=== PATIENT | female | born 1980 | race Hispanic/Latino ===

== ENCOUNTER 2016-11-02 15:27 | Emergency (ER) | payer MEDICAID ==
[2016-11-02 16:08] VITALS: BP 149/87
[2016-11-02] MEDS ORDERED: NORCO 5/325 PO ONE (17:04)
[2016-11-02] MEDS ORDERED: CLEOCIN IM ONE (17:05)
--- NOTE | 2016-11-02 17:13 | Emergency Department Report ---
HPI - General Chief Complaint: Skin/Abscess/Foreign Body Time Seen by Provider: 11/02/16 17:03 - HPI HPI: She is a 36-year-old female presents to the ED complaining of redness, pain and buttock area times a week. Patient states she was in about a week ago and thinks she may have gotten bitten by a spider. Patient states she did not feel any bite or see any spiders. Patient states on Wednesday the buttock area begin painful to touch. Patient states she was unable to see due to pain. Patient states walking and sitting out of restraints to pain. Patient states redness and swelling to buttock area. Patient denies fevers/chills/nausea/vomiting/abdominal pain/vaginal discharge bleeding or any other problems ED Past Medical Hx - Past Medical History Previous Medical History?: Yes Hx Asthma: Yes Additional medical history: Vaginal delivery x 5, Mioscarriage x 2 - Surgical History Past Surgical History?: No Hx Cholecystectomy: Yes Additional Surgical History: tubal ligation, tonsilectomy - Social History Smoking Status: Current Every Day Smoker Substance Use Type: Non Opiate Pain, Prescribed, Other - Medications Home Medications: Home Medications Medication Instructions Recorded Confirmed Last Taken Type Azithromycin [Zithromax Z-SKYLA] 250 mg PO DAILY #6 tablet 02/05/14 Unknown Rx Acetaminophen/Codeine [Tylenol 1 tab PO Q6H PRN #14 tab 11/02/16 Unknown Rx /Codeine # 3 tab] Ibuprofen [Motrin] 800 mg PO Q8HR PRN #30 tablet 11/02/16 Unknown Rx Sulfamethoxazole/Trimethoprim 1 tab PO BID #14 tab 11/02/16 Unknown Rx [Bactrim 400-80 mg] ED Review of Systems ROS: Stated complaint: POSS SPIDER BITE/ RT EAR BLOCKED Other details as noted in HPI Constitutional: denies: chills, fever Eyes: denies: eye pain, eye discharge, vision change ENT: denies: ear pain, throat pain Respiratory: denies: cough, shortness of breath, wheezing Cardiovascular: denies: chest pain, palpitations Endocrine: no symptoms reported Gastrointestinal: denies: abdominal pain, nausea, diarrhea Genitourinary: denies: urgency, dysuria, discharge Musculoskeletal: denies: back pain, joint swelling, arthralgia Skin: denies: rash, lesions, pruritus Neurological: denies: headache, weakness, paresthesias Psychiatric: denies: anxiety, depression Hematological/Lymphatic: denies: easy bleeding, easy bruising Physical Exam - Physical Exam Vital Signs: Vital Signs 11/02/16 16:04 Temperature 98.3 F Pulse Rate 96 H Respiratory 18 Rate Blood Pressure 149/87 O2 Sat by Pulse 97 Oximetry Physical Exam: GENERAL: Alert and oriented x3, no apparent distress, Normal Gait, atraumatic. HEAD: Head is normocephalic and a-traumatic. NECK: Supple. Non edematous, No carotid bruits. No lymphadenopathy or thyromegaly. No C-spine tenderness LUNGS: Symetrical with respiration, No wheezing, no rales or crackles, CTAB. HEART: S1, S2 present, regular rate and rhythm without murmur, no rubs, no gallops. ABDOMEN: No organomegaly was noted,Positive bowel sounds, soft, and non- distended. . Nontender to palpation on all Quadrants, NO CVA tenderness. RECTUM: pilondal erythema,tender to palpation. Mildly swollen., No drainage. Nonfluctuant. EXTREMITIES/MUSCULOSKELETAL: No cyanosis, clubbing, rash, lesions or edema. Full ROM bilaterally. NEUROLOGIC: No focal Deficit, Cranial nerves II through XII are grossly intact. No loss of sensation, SKIN: Warm and dry, No lesions, No ulceration or induration present. ED Course Vital Signs 11/02/16 16:04 Temperature 98.3 F Pulse Rate 96 H Respiratory 18 Rate Blood Pressure 149/87 O2 Sat by Pulse 97 Oximetry ED Medical Decision Making - Medical Decision Making 36-year-old female presents with Pilondial cyst abscess ED course: Patient received clindamycin and IM and [place] for pain. Warm compresses placed on cellulitis. buttock Region is tender to palpation erythematous, nonfluctuant Discussed with patient to keep warm compresses 3 times a day. Discussed to take medication as prescribed. Discussed the patient if needed to return to ED for drainage or follow-up with primary care physician for abscess drainage. Discussed the patient at this time abscess cannot be drained as it is not flatulent. Discussed antibiotic therapy and pain medication at home. Patient's vital signs are normal she is not in any acute distress. Critical care attestation.: If time is entered above; I have spent that time in minutes in the direct care of this critically ill patient, excluding procedure time. ED Disposition Clinical Impression: Pilonidal abscess Cellulitis Qualifiers: Site of cellulitis: buttock Qualified Code(s): L03.317 - Cellulitis of buttock Disposition: DISCHARGED TO HOME OR SELFCARE Is pt being admited?: No Does the pt Need Aspirin: No Condition: Stable Instructions: Cellulitis (ED), Abscess (ED), Heat Pack Application (ED) Additional Instructions: Apply heat 3 times a day to affected area. Take medication as prescribed. Follow-up primary care physician as referred. cellulitis is may resolve on its own or it might need to be drained. At this moment does not need to be drained as it is not fluctuant Prescriptions: Acetaminophen/Codeine [Tylenol /Codeine # 3 tab] 1 tab PO Q6H PRN #14 tab PRN Reason: Pain Ibuprofen [Motrin] 800 mg PO Q8HR PRN #30 tablet PRN Reason: Pain Sulfamethoxazole/Trimethoprim [Bactrim 400-80 mg] 1 tab PO BID #14 tab Referrals: PRIMARY CAREMD [Primary Care Provider] - 3-5 Days ELISEO TSANG MD [Referring] - 3-5 Days [facility] [Outside] - 3-5 Days [facility] [Outside] - 3-5 Days [facility] [Outside] - 3-5 Days Forms: Accompanied Note, Work/School Release Form(ED) Time of Disposition: 18:24
== END 2016-11-02 18:27 | disposition home or self-care (01) ==
LOC: ED 15:27
DX: L03.317 Cellulitis of buttock (principal); L05.01 Pilonidal cyst with abscess; J45.909 Unspecified asthma, uncomplicated; F17.200 Nicotine dependence, unspecified, uncomplicated
CPT/HCPCS: 96372; 99283